=== PATIENT | female | born 1935 | race Caucasian/White ===

== ENCOUNTER 2016-10-14 11:29 | Emergency (ER) | payer BC ==
[2016-10-14 11:34] VITALS: BP 135/79; PULSE 71; TEMP 99; BMI 25.4
[2016-10-14] MEDS ORDERED: CIPROFLOXACIN 500 MG TABLET (RESTRICTED TO ID) PO ONE (12:08)
[2016-10-14] MEDS ORDERED: IBUPROFEN 400 MG TABLET (FP) PO ONE ×2 (12:08→12:19)
[2016-10-14] MEDS ORDERED: DIPHTH,PERTUSS(ACELL),TET 0.5 ML DISP.SYRIN IM ONE (12:08)
--- NOTE | 2016-10-14 12:09 | PDOC ---
History of Present Illness - General Chief Complaint: Injury Stated Complaint: INJURY TO FOOT WITH NAIL Time Seen by Provider: 10/14/16 11:45 History Source: Patient - History of Present Illness Occurred: reports: yesterday Severity: Yes: moderate Lower Extremity Pain Location: right: foot Method of Injury: Yes: other Past History - Past Medical History Allergies/Adverse Reactions: Allergies Allergy/AdvReac Type Severity Reaction Status Date / Time codeine [Codeine] Allergy Verified 10/14/16 12:06 Home Medications: Ambulatory Orders Calcium 500 mg PO DAILY 05/02/12 Cholecalciferol (Vitamin D3) [Vitamin D] 400 unit PO DAILY 05/02/12 Docosahexanoic Acid/Epa [Fish Oil Softgel] 1 each PO DAILY 05/02/12 Levothyroxine [Synthroid -] 112 mcg PO DAILY 05/02/12 Primidone [Mysoline] 50 mg PO TID 05/02/12 Raloxifene HCl [Evista] 60 mg PO DAILY 05/02/12 Spironolactone 25 mg PO BID 05/02/12 Ubidecarenone [Co Q-10] 10 mg PO DAILY 05/02/12 Ciprofloxacin HCl [Cipro] 500 mg PO BID #9 tablet 10/14/16 Anemia: No Asthma: No Cancer: Yes (COLON CANCER, 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) Cardiac Disorders: No CVA: No COPD: No CHF: No Dementia: No Diabetes: No GI Disorders: Yes (COLON CANCER) Disorders: No HTN: No Hypercholesterolemia: No Liver Disease: No Seizures: No Thyroid Disease: No - Surgical History Abdominal Surgery: Yes (colon resection) Appendectomy: Yes Cardiac Surgery: No Cholecystectomy: No Lung Surgery: No Neurologic Surgery: No Orthopedic Surgery: No - Psycho/Social/Smoking Cessation Hx Anxiety: No Suicidal Ideation: No Smoking Status: No Smoking History: Never smoked Have you smoked in the past 12 months: No Number of Cigarettes Smoked Daily: 0 Information on smoking cessation initiated: No Hx Alcohol Use: No Drug/Substance Use Hx: No Substance Use Type: None Hx Substance Use Treatment: No Review of Systems - Review of Systems Constitutional: No: Fever Integumentary: Yes: Other (wound) *Physical Exam - Vital Signs Last Vital Signs Temp Pulse Resp BP Pulse Ox 99.0 F 71 20 135/79 100 10/14/16 11:31 10/14/16 11:31 10/14/16 11:31 10/14/16 11:31 10/14/16 11:31 - Physical Exam General Appearance: Yes: Appropriately Dressed. No: Apparent Distress HEENT: positive: Normal Voice Neck: positive: Supple Respiratory/Chest: negative: Respiratory Distress Extremity: positive: Other (puncture wound to ball of R foot, ttp, no redness, discharge of fb on palpation or grossly) Integumentary: positive: Dry, Warm Neurologic: positive: Fully Oriented, Alert, Normal Mood/Affect ED Treatment Course - RADIOLOGY Radiology Studies Ordered: Category Date Time Status FOOT-RIGHT [RAD] Stat Radiology 10/14/16 12:08 Ordered Medical Decision Making - Medical Decision Making 10/14/16 12:09 81 yo F, hypothyroid, colon ca s/p resection remotely, p/w puncture wound to R foot after stepping on nail outdoor while wearing sneakers yesterday. States nail was "a good size" and was able to remove it intact. Denies fb sensation but hurts to walk. No f/c. See exam Plantar puncture wound Nail removed intact per pt No fb sensation No f/c No obvious infxn to site -local wound care in ED -pain control -tetanus -abx prophylaxis -XR r/o fb 10/14/16 12:10 10/14/16 12:16 10/14/16 13:01 XR neg for fb. Pt discharged in stable condition in care of family for wound check *DC/Admit/Observation/Transfer Diagnosis at time of Disposition: Puncture wound of plantar aspect of foot Qualifiers: Encounter type: initial encounter Laterality: right Qualified Code(s): S91.331A - Puncture wound without foreign body, right foot, initial encounter - Discharge Dispostion Disposition: HOME Condition at time of disposition: Good - Prescriptions Prescriptions: Ciprofloxacin HCl [Cipro] 500 mg PO BID #9 tablet - Referrals Referrals: Von Damon MD [Primary Care Provider] - - Patient Instructions Printed Discharge Instructions: DI for Puncture Wound Additional Instructions: Take antibiotics as directed and return to ED in 2 days for wound check. Return immediately for worsening pain, redness, discharge or fever
[2016-10-14] MEDS ORDERED: BACITRACIN 30 GM TUBE TOPICAL OINTMENT ONE (12:19)
== END 2016-10-14 13:08 | disposition home or self-care (01) ==
LOC: JERFT 11:29
PROC: 3E0234Z Introduction of Serum, Toxoid and Vaccine into Muscle, Percutaneous Approach (ICD-10-PCS; principal; 2016-10-14)
DX: S91.331A Puncture wound without foreign body, right foot, initial encounter (principal); W45.0XXA Nail entering through skin, initial encounter; Y93.01 Activity, walking, marching and hiking; Y92.89 Other specified places as the place of occurrence of the external cause; E03.9 Hypothyroidism, unspecified
CPT/HCPCS: 73630-TC-RT; 90471; 90715; 99282-25

== ENCOUNTER 2022-03-27 11:30 | Inpatient (IN) | payer BC ==
[2022-03-27] MEDS ORDERED: DIPHTH,PERTUSS(ACELL),TET 0.5 ML DISP.SYRIN IM ONE ×2 (12:03→12:22)
[2022-03-27] MEDS ORDERED: ACETAMINOPHEN 1000 MG/100 ML BAG IVPB ONE ×2 (12:05→22:44)
[2022-03-27] MEDS ORDERED: FLUOROURACIL 2% TOPICAL SOLUTION 10 ML BOTTLE TP ONE (12:19)
[2022-03-27] MEDS ORDERED: ACETAMINOPHEN INJECTION 100 ML IVPB ONE ×2 (12:22→23:06)
[2022-03-27] MEDS ORDERED: FLUORESCEIN NA 1 EA STRIP ONE (12:22)
[2022-03-27] MEDS ORDERED: TETRACAINE 0.5% HCL 0.6ML DROPPER.BOTTLE OD ONE (12:28)
[2022-03-27] MEDS ORDERED: TETRACAINE 0.5% OPHTH SOLN 2 ML BOTTLE ONE (12:29)
[2022-03-27 12:31] LABS: VENOUS BASE EXCESS -0.1 mmol/L (-2-2); VENOUS PCO2 46.5 mmHg (38-52); VENOUS PH 7.36 (7.310-7.410)
[2022-03-27 12:49] LABS: INR 1.11 (0.83-1.09); PROTHROMBIN TIME (PATIENT) 12.8 SEC (9.7-13.0)
[2022-03-27 12:52] LABS: ACTIVATED PTT 25.5 SECONDS (25.2-36.5)
[2022-03-27 12:53] LABS: BASO % 0.2 % (0-2.0); HEMATOCRIT 39.5 % (32.4-45.2); HEMOGLOBIN 12.5 GM/dL (10.7-15.3); LYMPH % 21.3 % (8-40); MCH 28.8 pg (25.7-33.7); MCHC 31.7 g/dl (32.0-36.0); MEAN CELL VOLUME 90.9 fl (80-96); MEAN PLT VOLUME 9.8 fl (7.5-11.1); MONO % 7.2 % (3.8-10.2); NEUT % 70.3 % (42.8-82.8); PLATELET COUNT 192 10^3/uL (134-434); RBC 4.35 M/mm3 (3.60-5.2); RDW 13.7 % (11.6-15.6); WHITE BLOOD COUNT 9.9 K/mm3 (4.0-10.0)
[2022-03-27 12:54] LABS: CHLORIDE 106 mmol/L (98-107); SODIUM 142 mmol/L (136-145)
[2022-03-27 12:56] LABS: CALCIUM 9.3 mg/dL (8.5-10.1)
[2022-03-27 12:58] LABS: ALBUMIN 3.7 g/dl (3.4-5.0); ANION GAP 8 MMOL/L (8-16); BLOOD UREA NITROGEN 29.3 mg/dL (7-18); CO2 28 mmol/L (21-32); GLUCOSE,RANDOM 108 mg/dL (74-106); MAGNESIUM 2.2 mg/dL (1.8-2.4)
[2022-03-27 13:01] LABS: CREATININE 0.6 mg/dL (0.55-1.3); PHOSPHOROUS 2.8 mg/dL (2.5-4.9); SGOT/AST 30 U/L (15-37); SGPT/ALT 26 U/L (13-61)
[2022-03-27] MEDS ORDERED: SODIUM CHLORIDE 1,000 ML IV STA (13:02)
[2022-03-27] MEDS ORDERED: KCL 10 MEQ IVPB 10 MEQ/100 ML INFUS.BAG IVPB SCH (13:15)
[2022-03-27 13:48] LABS: ALK PHOS 84 U/L (45-117); BILIRUBIN,TOTAL 0.4 mg/dL (0.2-1); TOT PROT 6.9 g/dl (6.4-8.2)
[2022-03-27 15:04] LABS: EPI CELLS 1 /uL (0-25.1); HYALINE CASTS 0 /uL (0-3.1); URINE APPEARANCE CLEAR; URINE BACTERIA 2 /uL (0-1359); URINE BILIRUBIN NEGATIVE (NEGATIVE); URINE COLOR YELLOW; URINE GLUCOSE (UA) NEGATIVE (NEGATIVE); URINE KETONE NEGATIVE (NEGATIVE); URINE LEUK ESTERASE NEGATIVE (NEGATIVE); URINE NITRITE NEGATIVE (NEGATIVE); URINE PROTEIN NEGATIVE (NEGATIVE); URINE RBC 70 /uL (0-23.9); URINE UROBILINOGEN 0.2 mg/dL (0.2-1.0); URINE WBC 3 /uL (0-25.8)
[2022-03-27] MEDS ORDERED: ASPIRIN 81 MG CHEWABLE TABLETS PO ONE (15:13)
[2022-03-27] MEDS ORDERED: ceFAZolin 2 GRAM PREMIX BAG IVPB ONE (15:56)
[2022-03-27] MEDS ORDERED: CEFAZOLIN SODIUM 2 GM in DEXTROSE 5%-WATER 100 ML IVPB ONE (16:00)
[2022-03-27] MEDS ORDERED: CEFAZOLIN SODIUM 2 GM VIAL ONE (16:19)
[2022-03-27] MEDS ORDERED: ASPIRIN 81 MG CHEWABLE TABLETS ONE (16:27)
[2022-03-27] MEDS ORDERED: HEPARIN NA (PORCINE) 5,000 UNITS/ML 1ML VIAL IVPUSH ONE ×2 (16:40→16:51)
[2022-03-27] MEDS ORDERED: HEPARIN NA (PORCINE) 5,000 UNITS/ML 1ML VIAL IVPUSH PRN ×4 (16:42→16:51)
[2022-03-27] MEDS ORDERED: HEPARIN - 25,000 UNIT in SODIUM CHLORIDE 495 ML IV SCH (16:45)
[2022-03-27] MEDS ORDERED: HEPARIN INFUSION - 25,000 UNITS/500 ML INFUS.BAG IVPB SCH (17:00)
[2022-03-27] MEDS ORDERED: LIDOCAINE HCL 1%, 10 MG/ML (50 mL VIAL) SQ ONE (17:13)
[2022-03-27] MEDS ORDERED: LIDOCAINE HCL 1%, 10 MG/ML (20ML VIAL) ONE (17:15)
[2022-03-27] MEDS ORDERED: HEPARIN NA (PORCINE) 5,000 UNITS/ML 1ML VIAL ONE (17:53)
[2022-03-27] MEDS ORDERED: HEPARIN INFUSION - 25,000 UNITS/500 ML INFUS.BAG IVPB ONE (17:53)
[2022-03-27] MEDS ORDERED: POTASSIUM CHLORIDE TABS 20 MEQ TABLET.ER (FP) PO ONE (18:25)
[2022-03-27] MEDS ORDERED: POTASSIUM CHLORIDE ORAL LIQUID 20 MEQ/15 ML ONE (21:39)
[2022-03-27] MEDS ORDERED: TRIMETHOBENZAMIDE HCL 200MG/2ML INJ IM ONE ×2 (22:09→22:11)
[2022-03-28] MEDS ORDERED: ceFAZolin SODIUM 1 GM VIAL ONE ×3 (04:44→18:36)
[2022-03-28] MEDS: CEFAZOLIN 1 GM in DEXTROSE 5%-WATER - 50 ML IVPB SCH ×3 (04:58→18:47)
[2022-03-28 06:46] LABS: BASO % 0.4 % (0-2.0); EOS % 0.4 % (0-4.5); HEMATOCRIT 31.2 % (32.4-45.2); LYMPH % 15.6 % (8-40); MCH 29.5 pg (25.7-33.7); MEAN CELL VOLUME 92.1 fl (80-96); MEAN PLT VOLUME 9.6 fl (7.5-11.1); NEUT % 75.6 % (42.8-82.8); PLATELET COUNT 175 10^3/uL (134-434); RBC 3.39 M/mm3 (3.60-5.2); RDW 13.9 % (11.6-15.6); WHITE BLOOD COUNT 8.2 K/mm3 (4.0-10.0)
[2022-03-28 07:02] LABS: CALCIUM 8.3 mg/dL (8.5-10.1)
[2022-03-28 07:03] LABS: BLOOD UREA NITROGEN 17.7 mg/dL (7-18)
[2022-03-28 07:06] LABS: CREATININE 0.5 mg/dL (0.55-1.3)
[2022-03-28 07:07] LABS: TOT PROT 5.2 g/dl (6.4-8.2)
[2022-03-28] MEDS ORDERED: POTASSIUM CHLORIDE ORAL LIQUID 20 MEQ/15 ML PO ONE (07:43)
[2022-03-28] MEDS ORDERED: POTASSIUM CHLORIDE ORAL LIQUID 20 MEQ/15 ML ONE (08:18)
[2022-03-28 08:50] LABS: ALBUMIN 2.7 g/dl (3.4-5.0); BILIRUBIN,TOTAL 0.7 mg/dL (0.2-1)
[2022-03-28] MEDS: LEVOTHYROXINE NA 112 MCG TABLET (FP) PO SCH (09:34)
[2022-03-28] MEDS ORDERED: ASPIRIN COATED 81 MG TABLET.EC PO SCH (10:00)
[2022-03-28] MEDS ORDERED: PROTAMINE SULFATE 50 MG/5 ML VIAL IVPUSH ONE (14:43)
[2022-03-28] MEDS ORDERED: levETIRAcetam 500 MG/5 ML INJECTION VIAL IVPB ONE ×3 (14:50→21:09)
[2022-03-28 20:30] LABS: BASO % 0.2 % (0-2.0); EOS % 0.3 % (0-4.5); HEMATOCRIT 30.1 % (32.4-45.2); HEMOGLOBIN 9.8 GM/dL (10.7-15.3); LYMPH % 14.1 % (8-40); MCH 29.9 pg (25.7-33.7); MCHC 32.5 g/dl (32.0-36.0); MEAN CELL VOLUME 91.9 fl (80-96); MEAN PLT VOLUME 9.8 fl (7.5-11.1); MONO % 9.2 % (3.8-10.2); NEUT % 76.2 % (42.8-82.8); PLATELET COUNT 174 10^3/uL (134-434); RBC 3.28 M/mm3 (3.60-5.2); RDW 13.6 % (11.6-15.6); WHITE BLOOD COUNT 9.5 K/mm3 (4.0-10.0)
[2022-03-28] MEDS: levETIRAcetam 500 MG/5 ML INJECTION VIAL IVPB SCH (21:19)
[2022-03-28] MEDS ORDERED: ATORVASTATIN CA 40 MG TABLET (FP) PO SCH (22:00)
[2022-03-29] MEDS ORDERED: ceFAZolin SODIUM 1 GM VIAL ONE ×2 (04:19→09:21)
[2022-03-29] MEDS: CEFAZOLIN 1 GM in DEXTROSE 5%-WATER - 50 ML IVPB SCH ×3 (04:26→17:12)
[2022-03-29] MEDS: LEVOTHYROXINE NA 112 MCG TABLET (FP) PO SCH (07:06)
[2022-03-29 07:55] LABS: HEMATOCRIT 26.7 % (32.4-45.2); HEMOGLOBIN 8.7 GM/dL (10.7-15.3); MCH 29.9 pg (25.7-33.7); MCHC 32.5 g/dl (32.0-36.0); MEAN CELL VOLUME 92.1 fl (80-96); PLATELET COUNT 160 10^3/uL (134-434); RDW 13.6 % (11.6-15.6); WHITE BLOOD COUNT 7.9 K/mm3 (4.0-10.0)
[2022-03-29 08:09] LABS: MAGNESIUM 1.8 mg/dL (1.8-2.4)
[2022-03-29 08:13] LABS: PHOSPHOROUS 2.4 mg/dL (2.5-4.9)
[2022-03-29 08:39] LABS: INR 1.15 (0.83-1.09); PROTHROMBIN TIME (PATIENT) 13.2 SEC (9.7-13.0)
[2022-03-29] MEDS ORDERED: levETIRAcetam 500 MG/5 ML INJECTION VIAL IVPB ONE (09:20)
[2022-03-29] MEDS ORDERED: PANTOPRAZOLE SODIUM 40 MG/100 ML BAG IVPB ONE (09:21)
[2022-03-29 09:54] LABS: CHLORIDE 108 mmol/L (98-107); SODIUM 143 mmol/L (136-145)
[2022-03-29 09:56] LABS: BLOOD UREA NITROGEN 18.2 mg/dL (7-18); CALCIUM 8.3 mg/dL (8.5-10.1)
[2022-03-29 09:57] LABS: ALBUMIN 2.8 g/dl (3.4-5.0); ANION GAP 9 MMOL/L (8-16); CO2 27 mmol/L (21-32); GLUCOSE,RANDOM 97 mg/dL (74-106)
[2022-03-29 09:59] LABS: SGPT/ALT 17 U/L (13-61)
[2022-03-29 10:00] LABS: CREATININE 0.6 mg/dL (0.55-1.3); SGOT/AST 29 U/L (15-37)
[2022-03-29 10:01] LABS: BILIRUBIN,TOTAL 0.6 mg/dL (0.2-1); TOT PROT 5.3 g/dl (6.4-8.2)
[2022-03-29 10:02] LABS: ALK PHOS 58 U/L (45-117)
[2022-03-29] MEDS: PANTOPRAZOLE SODIUM 40 MG VIAL IVPUSH SCH (10:12)
[2022-03-29] MEDS: levETIRAcetam 500 MG/5 ML INJECTION VIAL IVPB SCH ×2 (11:00→22:18)
[2022-03-29] MEDS ORDERED: POTASSIUM CHLORIDE 10 MEQ PREMIX IVPB (POTASSIUM RIDER) IVPB SCH (12:59)
[2022-03-29] MEDS ORDERED: FLU VACC QS2022-23(6MOS UP)/PF 60 MCG/0.5 ML SYRINGE IM ONE (13:07)
[2022-03-29] MEDS ORDERED: SODIUM CHLORIDE 0.9% 500 ML INFUS.BAG IV ONE (13:35)
[2022-03-29] MEDS ORDERED: PNEUMOC 20-VAL CONJ-DIP CRM/PF 0.5 ML SYRINGE IM ONE (14:30)
[2022-03-29] MEDS: KCL 10 MEQ IVPB 10 MEQ/100 ML INFUS.BAG IVPB SCH ×3 (14:35→17:26)
[2022-03-29 17:14] LABS: BASO % 0.3 % (0-2.0); EOS % 1.7 % (0-4.5); HEMATOCRIT 28.3 % (32.4-45.2); HEMOGLOBIN 9.3 GM/dL (10.7-15.3); LYMPH % 17.5 % (8-40); MCH 30.2 pg (25.7-33.7); MCHC 32.8 g/dl (32.0-36.0); MEAN CELL VOLUME 92.1 fl (80-96); MEAN PLT VOLUME 8.9 fl (7.5-11.1); MONO % 11.7 % (3.8-10.2); NEUT % 68.8 % (42.8-82.8); PLATELET COUNT 155 10^3/uL (134-434); RBC 3.07 M/mm3 (3.60-5.2); RDW 13.8 % (11.6-15.6); WHITE BLOOD COUNT 9.6 K/mm3 (4.0-10.0)
[2022-03-29] MEDS: MUPIROCIN 2% TOPICAL OINTMENT FOR DECOLONIZATION NS SCH ×3 (17:25→22:19)
[2022-03-29] MEDS: CHLORHEXIDINE GLUCONATE 4% CLEANSER FOR DECOLONIZATION TP SCH ×2 (20:25→22:18)
[2022-03-29] MEDS: ATORVASTATIN CA 40 MG TABLET (FP) PO SCH (22:19)
[2022-03-30] MEDS: CEFAZOLIN 1 GM in DEXTROSE 5%-WATER - 50 ML IVPB SCH ×3 (02:15→17:42)
[2022-03-30 07:45] LABS: HEMATOCRIT 26.5 % (32.4-45.2); HEMOGLOBIN 8.7 GM/dL (10.7-15.3); MCH 30.4 pg (25.7-33.7); MCHC 32.9 g/dl (32.0-36.0); MEAN CELL VOLUME 92.2 fl (80-96); MEAN PLT VOLUME 9.3 fl (7.5-11.1); PLATELET COUNT 151 10^3/uL (134-434); RBC 2.87 M/mm3 (3.60-5.2); RDW 13.4 % (11.6-15.6); WHITE BLOOD COUNT 8.9 K/mm3 (4.0-10.0)
[2022-03-30 07:51] LABS: INR 1.1 (0.83-1.09); PROTHROMBIN TIME (PATIENT) 12.7 SEC (9.7-13.0)
[2022-03-30 07:52] LABS: ACTIVATED PTT 23.8 SECONDS (25.2-36.5)
[2022-03-30 08:10] LABS: ALBUMIN 2.6 g/dl (3.4-5.0); BLOOD UREA NITROGEN 10.2 mg/dL (7-18); CALCIUM 8.4 mg/dL (8.5-10.1)
[2022-03-30 08:13] LABS: CREATININE 0.5 mg/dL (0.55-1.3); PHOSPHOROUS 2.3 mg/dL (2.5-4.9)
[2022-03-30 08:15] LABS: BILIRUBIN,TOTAL 0.7 mg/dL (0.2-1); TOT PROT 5.2 g/dl (6.4-8.2)
[2022-03-30] MEDS: levETIRAcetam 500 MG/5 ML INJECTION VIAL IVPB SCH ×2 (10:04→22:52)
[2022-03-30] MEDS: PANTOPRAZOLE SODIUM 40 MG VIAL IVPUSH SCH (10:04)
[2022-03-30] MEDS ORDERED: ACETAMINOPHEN INJECTION 100 ML IVPB ONE (14:47)
[2022-03-30] MEDS: ACETAMINOPHEN 1000 MG/100 ML BAG IVPB PRN (15:17)
[2022-03-30] MEDS: MUPIROCIN 2% TOPICAL OINTMENT FOR DECOLONIZATION NS SCH ×2 (15:17→22:53)
[2022-03-30 16:17] LABS: EPI CELLS >36 /uL (0-25.1); HYALINE CASTS 13 /uL (0-3.1); URINE APPEARANCE CLOUDY; URINE BACTERIA 63 /uL (0-1359); URINE BILIRUBIN NEGATIVE (NEGATIVE); URINE COLOR YELLOW; URINE GLUCOSE (UA) NEGATIVE (NEGATIVE); URINE KETONE 2+ (NEGATIVE); URINE LEUK ESTERASE 2+ (NEGATIVE); URINE NITRITE NEGATIVE (NEGATIVE); URINE PROTEIN TRACE (NEGATIVE); URINE RBC 65 /uL (0-23.9); URINE UROBILINOGEN 0.2 mg/dL (0.2-1.0); URINE WBC 373 /uL (0-25.8)
[2022-03-30] MEDS: LEVOTHYROXINE NA 112 MCG TABLET (FP) PO SCH (16:22)
[2022-03-30 20:21] LABS: BASO % 0.2 % (0-2.0); EOS % 1.5 % (0-4.5); HEMOGLOBIN 8.6 GM/dL (10.7-15.3); LYMPH % 22.5 % (8-40); MCH 30.3 pg (25.7-33.7); MCHC 33.3 g/dl (32.0-36.0); MEAN CELL VOLUME 91.1 fl (80-96); MEAN PLT VOLUME 9.3 fl (7.5-11.1); MONO % 10.5 % (3.8-10.2); NEUT % 65.3 % (42.8-82.8); PLATELET COUNT 165 10^3/uL (134-434); RBC 2.85 M/mm3 (3.60-5.2); RDW 13.5 % (11.6-15.6); WHITE BLOOD COUNT 10.8 K/mm3 (4.0-10.0)
[2022-03-30] MEDS: ATORVASTATIN CA 40 MG TABLET (FP) PO SCH (22:52)
[2022-03-30] MEDS: CHLORHEXIDINE GLUCONATE 4% CLEANSER FOR DECOLONIZATION TP SCH (22:53)
[2022-03-31] MEDS: LEVOTHYROXINE NA 112 MCG TABLET (FP) PO SCH (06:37)
[2022-03-31] MEDS ORDERED: levETIRAcetam 500 MG/5 ML INJECTION VIAL IVPB SCH (10:00)
[2022-03-31] MEDS ORDERED: PANTOPRAZOLE SODIUM 40 MG VIAL IVPUSH SCH (10:00)
[2022-03-31] MEDS: ACETAMINOPHEN 1000 MG/100 ML BAG IVPB PRN (10:13)
[2022-03-31 11:51] LABS: INR 1.15 (0.83-1.09); PROTHROMBIN TIME (PATIENT) 13.2 SEC (9.7-13.0)
[2022-03-31 11:55] LABS: HEMATOCRIT 27.5 % (32.4-45.2); HEMOGLOBIN 9.1 GM/dL (10.7-15.3); MCH 30.2 pg (25.7-33.7); MEAN CELL VOLUME 91.6 fl (80-96); MEAN PLT VOLUME 9.6 fl (7.5-11.1); PLATELET COUNT 172 10^3/uL (134-434); RBC 3.01 M/mm3 (3.60-5.2); RDW 13.5 % (11.6-15.6); WHITE BLOOD COUNT 10.6 K/mm3 (4.0-10.0)
[2022-03-31] MEDS ORDERED: POTASSIUM CHLORIDE TABS 20 MEQ TABLET.ER (FP) PO ONE (12:18)
[2022-03-31 12:28] LABS: CALCIUM 8.6 mg/dL (8.5-10.1)
[2022-03-31 12:29] LABS: ALBUMIN 2.7 g/dl (3.4-5.0); BLOOD UREA NITROGEN 13.2 mg/dL (7-18)
[2022-03-31 12:32] LABS: CREATININE 0.5 mg/dL (0.55-1.3)
[2022-03-31 12:34] LABS: BILIRUBIN,TOTAL 0.8 mg/dL (0.2-1); TOT PROT 5.4 g/dl (6.4-8.2)
[2022-03-31] MEDS: ATORVASTATIN CA 40 MG TABLET (FP) PO SCH (22:30)
[2022-03-31] MEDS: levETIRAcetam 500 MG TABLET (FP) PO SCH (22:30)
[2022-04-01] MEDS: LEVOTHYROXINE NA 112 MCG TABLET (FP) PO SCH (06:37)
[2022-04-01] MEDS: PANTOPRAZOLE 40 MG TABLET PO SCH (10:41)
[2022-04-01] MEDS: levETIRAcetam 500 MG TABLET (FP) PO SCH ×2 (10:41→22:11)
[2022-04-01 11:43] LABS: BASO % 0.2 % (0-2.0); EOS % 2.4 % (0-4.5); HEMATOCRIT 27.7 % (32.4-45.2); HEMOGLOBIN 9.2 GM/dL (10.7-15.3); LYMPH % 17.4 % (8-40); MCH 30.1 pg (25.7-33.7); MEAN CELL VOLUME 91.3 fl (80-96); MEAN PLT VOLUME 9.4 fl (7.5-11.1); MONO % 9.7 % (3.8-10.2); NEUT % 70.3 % (42.8-82.8); PLATELET COUNT 210 10^3/uL (134-434); RBC 3.04 M/mm3 (3.60-5.2); RDW 13.2 % (11.6-15.6); WHITE BLOOD COUNT 9.3 K/mm3 (4.0-10.0)
[2022-04-01 12:10] LABS: ALBUMIN 2.5 g/dl (3.4-5.0); BLOOD UREA NITROGEN 12.4 mg/dL (7-18); CALCIUM 8.3 mg/dL (8.5-10.1); MAGNESIUM 2.1 mg/dL (1.8-2.4)
[2022-04-01] MEDS ORDERED: POTASSIUM CHLORIDE TABS 20 MEQ TABLET.ER (FP) PO ONE (12:11)
[2022-04-01 12:14] LABS: CREATININE 0.4 mg/dL (0.55-1.3); TOT PROT 5.3 g/dl (6.4-8.2)
[2022-04-01] MEDS: ATORVASTATIN CA 40 MG TABLET (FP) PO SCH (22:11)
[2022-04-02] MEDS: LEVOTHYROXINE NA 112 MCG TABLET (FP) PO SCH (06:39)
[2022-04-02] MEDS: PANTOPRAZOLE 40 MG TABLET PO SCH (09:12)
[2022-04-02] MEDS: levETIRAcetam 500 MG TABLET (FP) PO SCH ×2 (09:12→21:27)
[2022-04-02 10:38] LABS: BASO % 0.3 % (0-2.0); EOS % 1.9 % (0-4.5); HEMATOCRIT 27.3 % (32.4-45.2); LYMPH % 23.9 % (8-40); MEAN CELL VOLUME 90.9 fl (80-96); MEAN PLT VOLUME 9.1 fl (7.5-11.1); MONO % 10.4 % (3.8-10.2); NEUT % 63.5 % (42.8-82.8); PLATELET COUNT 239 10^3/uL (134-434); RBC 3.01 M/mm3 (3.60-5.2); RDW 13.6 % (11.6-15.6); WHITE BLOOD COUNT 8.4 K/mm3 (4.0-10.0)
[2022-04-02 11:00] LABS: ALBUMIN 2.6 g/dl (3.4-5.0); CALCIUM 8.5 mg/dL (8.5-10.1)
[2022-04-02 11:01] LABS: BLOOD UREA NITROGEN 15.2 mg/dL (7-18); MAGNESIUM 2.1 mg/dL (1.8-2.4)
[2022-04-02 11:03] LABS: CREATININE 0.4 mg/dL (0.55-1.3)
[2022-04-02 11:06] LABS: BILIRUBIN,TOTAL 1.2 mg/dL (0.2-1); TOT PROT 5.5 g/dl (6.4-8.2)
[2022-04-02] MEDS: ATORVASTATIN CA 40 MG TABLET (FP) PO SCH (21:27)
[2022-04-03] MEDS: LEVOTHYROXINE NA 112 MCG TABLET (FP) PO SCH (06:10)
[2022-04-03 09:14] LABS: BASO % 0.5 % (0-2.0); EOS % 2.1 % (0-4.5); HEMATOCRIT 28.1 % (32.4-45.2); HEMOGLOBIN 9.3 GM/dL (10.7-15.3); LYMPH % 17.7 % (8-40); MCH 30.1 pg (25.7-33.7); MCHC 32.9 g/dl (32.0-36.0); MEAN CELL VOLUME 91.4 fl (80-96); MEAN PLT VOLUME 8.6 fl (7.5-11.1); MONO % 10.7 % (3.8-10.2); PLATELET COUNT 248 10^3/uL (134-434); RBC 3.08 M/mm3 (3.60-5.2); RDW 13.9 % (11.6-15.6); WHITE BLOOD COUNT 7.6 K/mm3 (4.0-10.0)
[2022-04-03] MEDS: levETIRAcetam 500 MG TABLET (FP) PO SCH ×2 (09:31→22:50)
[2022-04-03] MEDS: PANTOPRAZOLE 40 MG TABLET PO SCH (09:31)
[2022-04-03 09:32] LABS: BLOOD UREA NITROGEN 18.6 mg/dL (7-18); CALCIUM 8.7 mg/dL (8.5-10.1)
[2022-04-03 09:33] LABS: ALBUMIN 2.7 g/dl (3.4-5.0)
[2022-04-03 09:35] LABS: CREATININE 0.5 mg/dL (0.55-1.3)
[2022-04-03 09:37] LABS: BILIRUBIN,TOTAL 1.4 mg/dL (0.2-1); TOT PROT 5.8 g/dl (6.4-8.2)
[2022-04-03 12:22] VITALS: BMI 24.0
[2022-04-03] MEDS: ATORVASTATIN CA 40 MG TABLET (FP) PO SCH (22:50)
[2022-04-04] MEDS: LEVOTHYROXINE NA 112 MCG TABLET (FP) PO SCH ×2 (05:13→06:54)
[2022-04-04] MEDS: levETIRAcetam 500 MG TABLET (FP) PO SCH (12:43)
[2022-04-04] MEDS: PANTOPRAZOLE 40 MG TABLET PO SCH (12:44)
[2022-04-04] MEDS: ATORVASTATIN CA 40 MG TABLET (FP) PO SCH (22:26)
[2022-04-05] MEDS: LEVOTHYROXINE NA 112 MCG TABLET (FP) PO SCH (06:31)
[2022-04-05] MEDS: PANTOPRAZOLE 40 MG TABLET PO SCH (11:39)
[2022-04-05] MEDS: ATORVASTATIN CA 40 MG TABLET (FP) PO SCH (21:15)
[2022-04-06] MEDS: LEVOTHYROXINE NA 112 MCG TABLET (FP) PO SCH (06:17)
[2022-04-06] MEDS: PANTOPRAZOLE 40 MG TABLET PO SCH (12:51)
[2022-04-06] MEDS ORDERED: ACETAMINOPHEN 325 MG TABLET (FP) PO PRN (14:40)
[2022-04-06] MEDS: ATORVASTATIN CA 40 MG TABLET (FP) PO SCH (21:53)
[2022-04-07] MEDS: LEVOTHYROXINE NA 112 MCG TABLET (FP) PO SCH (06:04)
[2022-04-07] MEDS: PANTOPRAZOLE 40 MG TABLET PO SCH ×2 (10:19→16:16)
[2022-04-07 13:29] LABS: BASO % 0.3 % (0-2.0); EOS % 0.9 % (0-4.5); HEMATOCRIT 32.1 % (32.4-45.2); HEMOGLOBIN 10.3 GM/dL (10.7-15.3); LYMPH % 14.9 % (8-40); MCH 29.3 pg (25.7-33.7); MEAN CELL VOLUME 91.3 fl (80-96); MEAN PLT VOLUME 8.2 fl (7.5-11.1); MONO % 8.4 % (3.8-10.2); NEUT % 75.5 % (42.8-82.8); PLATELET COUNT 401 10^3/uL (134-434); RBC 3.51 M/mm3 (3.60-5.2); RDW 13.9 % (11.6-15.6); WHITE BLOOD COUNT 10.2 K/mm3 (4.0-10.0)
[2022-04-07 14:06] LABS: ALBUMIN 3.2 g/dl (3.4-5.0); CALCIUM 9.4 mg/dL (8.5-10.1)
[2022-04-07 14:10] LABS: CREATININE 0.6 mg/dL (0.55-1.3); MAGNESIUM 2.1 mg/dL (1.8-2.4)
[2022-04-07 14:11] LABS: TOT PROT 6.7 g/dl (6.4-8.2)
[2022-04-07 14:12] LABS: BILIRUBIN,TOTAL 0.9 mg/dL (0.2-1)
[2022-04-07 17:02] LABS: EPI CELLS 4 /uL (0-25.1); HYALINE CASTS 0 /uL (0-3.1); PH,URINE 6.5 (5.0-8.0); URINE APPEARANCE CLEAR; URINE BACTERIA 16 /uL (0-1359); URINE BILIRUBIN NEGATIVE (NEGATIVE); URINE COLOR YELLOW; URINE GLUCOSE (UA) NEGATIVE (NEGATIVE); URINE KETONE NEGATIVE (NEGATIVE); URINE LEUK ESTERASE 1+ (NEGATIVE); URINE NITRITE NEGATIVE (NEGATIVE); URINE PROTEIN NEGATIVE (NEGATIVE); URINE RBC 4 /uL (0-23.9); URINE WBC 18 /uL (0-25.8)
[2022-04-07] MEDS ORDERED: CEFTRIAXONE 1 GM in DEXTROSE 5%-WATER - 50 ML IVPB ONE (17:08)
[2022-04-07] MEDS: ATORVASTATIN CA 40 MG TABLET (FP) PO SCH (22:06)
[2022-04-08] MEDS: CEFUROXIME AXETIL 500 MG TABLET PO SCH ×2 (06:38→09:06)
[2022-04-08 09:01] VITALS: RESP 18
[2022-04-08] MEDS: PANTOPRAZOLE 40 MG TABLET PO SCH (09:06)
[2022-04-08] MEDS: LEVOTHYROXINE NA 112 MCG TABLET (FP) PO SCH (10:35)
[2022-04-08 12:33] VITALS: BP 117/59; PULSE 86; TEMP 98.2
== END 2022-04-08 11:44 | DRG 85 ==
LOC: JER 11:30 → JERBED 16:15 → JICU 03-29 10:31 → J5S 03-30 15:33
PROVIDERS: ADMIT Internal Medicine; ATTEND Nurse Practitioner Family
PROC: 0HBRXZZ Excision of Toe Nail, External Approach (ICD-10-PCS; principal; 2022-03-30)
DX: S06.6X0A Traumatic subarachnoid hemorrhage without loss of consciousness, initial encounter (principal); I21.4 Non-ST elevation (NSTEMI) myocardial infarction; R47.01 Aphasia; S02.401A Maxillary fracture, unspecified side, initial encounter for closed fracture; F03.90 Unspecified dementia, unspecified severity, without behavioral disturbance, psychotic disturbance, mood disturbance, and anxiety; E03.9 Hypothyroidism, unspecified; S01.112A Laceration without foreign body of left eyelid and periocular area, initial encounter; R55 Syncope and collapse; I10 Essential (primary) hypertension; W19.XXXA Unspecified fall, initial encounter; Y93.9 Activity, unspecified; Y92.89 Other specified places as the place of occurrence of the external cause; Y99.9 Unspecified external cause status; B35.1 Tinea unguium; R31.29 Other microscopic hematuria
CPT/HCPCS: 0241U-QW; 36415; 70450-TC; 70486-TC; 70496-TC; 70498-TC; 71045-TC-FY; 71260-TC; 72125-TC; 72128-TC; 72131-TC; 72170-TC-FY; 73562-TC-LT-FY; 73630-TC-LT; 73630-TC-RT-FY; 74177-TC; 80053; 80061; 80307; 81003; 82272; 82550; 82553; 82803; 82962; 83605; 83735; 84100; 84439; 84443; 84484; 85025; 85027; 85384; 85610; 85730; 86850; 86900; 86901; 87040; 87086; 90677; 90715; 93005; 93010; 93306-TC; 93880-TC; 97116-GP; 97162-GP; 99285-25; C9803-CS; G0008; J1644; Q2036; U0003; U0005

== ENCOUNTER 2022-11-27 22:30 | Inpatient (IN) | payer OTHER, MEDICARE ==
[2022-11-27 22:37] VITALS: BMI 27.3
[2022-11-27] MEDS ORDERED: ACETAMINOPHEN 325 MG TABLET (FP) PO ONE (23:28)
[2022-11-28] MEDS ORDERED: ACETAMINOPHEN 325 MG TABLET (FP) ONE (00:17)
[2022-11-28] MEDS ORDERED: ACETAMINOPHEN 650 MG/20.3 ML ORAL SOLUTION (CUPS) ONE (00:21)
[2022-11-28] MEDS ORDERED: ACETAMINOPHEN 160 MG/5 ML 473ML BULK BOTTLE ONE (00:21)
[2022-11-28] MEDS ORDERED: ACETAMINOPHEN 650 MG/20.3 ML ORAL SOLUTION (CUPS) PO ONE (00:22)
[2022-11-28 02:28] LABS: HEMOGLOBIN 11.8 GM/dL (10.7-15.3); RBC 4.23 M/mm3 (3.60-5.2); WHITE BLOOD COUNT 14.5 K/mm3 (4.0-10.0)
[2022-11-28 02:29] LABS: BASO % 0.2 % (0-2.0); EOS % 0.1 % (0-4.5); HEMATOCRIT 37.4 % (32.4-45.2); LYMPH % 14.1 % (8-40); MCH 27.9 pg (25.7-33.7); MCHC 31.6 g/dl (32.0-36.0); MEAN CELL VOLUME 88.4 fl (80-96); MEAN PLT VOLUME 9.2 fl (7.5-11.1); MONO % 5.6 % (3.8-10.2); PLATELET COUNT 211 10^3/uL (134-434); RDW 15.8 % (11.6-15.6)
[2022-11-28 02:47] LABS: POTASSIUM 3.9 mmol/L (3.5-5.1)
[2022-11-28 02:50] LABS: ALBUMIN 3.2 g/dl (3.4-5.0); BLOOD UREA NITROGEN 32.1 mg/dL (7-18); CALCIUM 9.4 mg/dL (8.5-10.1)
[2022-11-28 02:55] LABS: BILIRUBIN,TOTAL 0.4 mg/dL (0.2-1); TOT PROT 6.3 g/dl (6.4-8.2)
[2022-11-28] MEDS ORDERED: CEFTRIAXONE 1 GM in DEXTROSE 5%-WATER - 50 ML IVPB ONE (06:00)
[2022-11-28] MEDS ORDERED: AZITHROMYCIN IVPB 500 MG/250 ML BAG IVPB ONE ×2 (06:00→10:45)
[2022-11-28] MEDS ORDERED: CEFTRIAXONE 1 GM/50 ML BAG ONE (07:00)
[2022-11-28] MEDS: PANTOPRAZOLE 40 MG TABLET PO SCH (10:52)
[2022-11-28] MEDS: LEVOTHYROXINE NA 112 MCG TABLET (FP) PO SCH (10:52)
[2022-11-28] MEDS: ENOXAPARIN NA (PORCINE) 40 MG/0.4 ML DISP.SYRIN SQ SCH (10:53)
[2022-11-28] MEDS ORDERED: DEXTROSE 5%-LACTATED RINGERS 1,000 ML IV SCH (11:15)
[2022-11-28] MEDS: ACETAMINOPHEN 325 MG TABLET (FP) PO PRN (13:51)
[2022-11-28] MEDS: ATORVASTATIN CA 40 MG TABLET (FP) PO SCH (21:25)
[2022-11-28] MEDS: DONEPEZIL HCL 10 MG TABLET (FP) PO SCH (21:25)
[2022-11-29] MEDS: LEVOTHYROXINE NA 112 MCG TABLET (FP) PO SCH (06:47)
[2022-11-29] MEDS: PANTOPRAZOLE 40 MG TABLET PO SCH (10:42)
[2022-11-29] MEDS: CEFTRIAXONE 1 GM in DEXTROSE 5%-WATER - 50 ML IVPB SCH (10:42)
[2022-11-29] MEDS: ENOXAPARIN NA (PORCINE) 40 MG/0.4 ML DISP.SYRIN SQ SCH (10:42)
[2022-11-29] MEDS: AZITHROMYCIN IVPB 250 MG in DEXTROSE 5%-WATER - 250 ML IVPB SCH (10:43)
[2022-11-29 12:04] LABS: BASO % 0.1 % (0-2.0); EOS % 0.1 % (0-4.5); HEMATOCRIT 34.7 % (32.4-45.2); HEMOGLOBIN 10.8 GM/dL (10.7-15.3); MCH 27.5 pg (25.7-33.7); MEAN CELL VOLUME 88.6 fl (80-96); MEAN PLT VOLUME 10.4 fl (7.5-11.1); MONO % 10.4 % (3.8-10.2); NEUT % 69.4 % (42.8-82.8); PLATELET COUNT 177 10^3/uL (134-434); RBC 3.92 M/mm3 (3.60-5.2); RDW 16.4 % (11.6-15.6); WHITE BLOOD COUNT 12.3 K/mm3 (4.0-10.0)
[2022-11-29 12:25] LABS: POTASSIUM 3.6 mmol/L (3.5-5.1)
[2022-11-29 12:28] LABS: BLOOD UREA NITROGEN 13.5 mg/dL (7-18)
[2022-11-29] MEDS ORDERED: LACTATED RINGERS SOLUTION 1,000 ML/1,000 ML INFUS.BAG IV SCH (12:30)
[2022-11-29 12:31] LABS: CREATININE 0.6 mg/dL (0.55-1.3)
[2022-11-29] MEDS ORDERED: DOCUSATE SODIUM 100 MG CAPSULE (FP) PO PRN (12:31)
[2022-11-29] MEDS: ACETAMINOPHEN 325 MG TABLET (FP) PO PRN (18:55)
[2022-11-29 19:21] LABS: EPI CELLS 24 /uL (0-25.1); HYALINE CASTS 0 /uL (0-3.1); URINE APPEARANCE CLEAR; URINE BACTERIA 12 /uL (0-1359); URINE BILIRUBIN NEGATIVE (NEGATIVE); URINE COLOR YELLOW; URINE GLUCOSE (UA) NEGATIVE (NEGATIVE); URINE KETONE NEGATIVE (NEGATIVE); URINE LEUK ESTERASE TRACE (NEGATIVE); URINE NITRITE NEGATIVE (NEGATIVE); URINE PROTEIN NEGATIVE (NEGATIVE); URINE RBC 15 /uL (0-23.9); URINE UROBILINOGEN 0.2 mg/dL (0.2-1.0); URINE WBC 20 /uL (0-25.8)
[2022-11-29] MEDS: SENNOSIDES 8.6MG TABLET (FP) PO SCH (21:07)
[2022-11-29] MEDS: ATORVASTATIN CA 40 MG TABLET (FP) PO SCH (21:07)
[2022-11-29] MEDS: DONEPEZIL HCL 10 MG TABLET (FP) PO SCH (21:07)
[2022-11-30] MEDS: LEVOTHYROXINE NA 112 MCG TABLET (FP) PO SCH (06:20)
[2022-11-30] MEDS: PANTOPRAZOLE 40 MG TABLET PO SCH (10:43)
[2022-11-30] MEDS: CEFTRIAXONE 1 GM in DEXTROSE 5%-WATER - 50 ML IVPB SCH (10:43)
[2022-11-30] MEDS: AZITHROMYCIN IVPB 250 MG in DEXTROSE 5%-WATER - 250 ML IVPB SCH (10:44)
[2022-11-30] MEDS: ENOXAPARIN NA (PORCINE) 40 MG/0.4 ML DISP.SYRIN SQ SCH (10:44)
[2022-11-30] MEDS: ACETAMINOPHEN 325 MG TABLET (FP) PO PRN ×2 (11:13→22:17)
[2022-11-30] MEDS: SENNOSIDES 8.6MG TABLET (FP) PO SCH (22:17)
[2022-11-30] MEDS: DONEPEZIL HCL 10 MG TABLET (FP) PO SCH (22:17)
[2022-11-30] MEDS: ATORVASTATIN CA 40 MG TABLET (FP) PO SCH (22:17)
[2022-12-01] MEDS: LEVOTHYROXINE NA 112 MCG TABLET (FP) PO SCH (06:16)
[2022-12-01 09:31] LABS: BASO % 0.2 % (0-2.0); EOS % 0.9 % (0-4.5); HEMATOCRIT 33.4 % (32.4-45.2); HEMOGLOBIN 10.7 GM/dL (10.7-15.3); LYMPH % 22.4 % (8-40); MCH 28.6 pg (25.7-33.7); MCHC 32.1 g/dl (32.0-36.0); MONO % 10.4 % (3.8-10.2); NEUT % 66.1 % (42.8-82.8); PLATELET COUNT 201 10^3/uL (134-434); RBC 3.75 M/mm3 (3.60-5.2); WHITE BLOOD COUNT 7.9 K/mm3 (4.0-10.0)
[2022-12-01 09:51] LABS: POTASSIUM 3.3 mmol/L (3.5-5.1)
[2022-12-01 09:55] LABS: BLOOD UREA NITROGEN 18.4 mg/dL (7-18); CALCIUM 8.7 mg/dL (8.5-10.1); MAGNESIUM 2.1 mg/dL (1.8-2.4)
[2022-12-01 09:58] LABS: CREATININE 0.4 mg/dL (0.55-1.3); PHOSPHOROUS 2.9 mg/dL (2.5-4.9)
[2022-12-01] MEDS: PANTOPRAZOLE 40 MG TABLET PO SCH (11:40)
[2022-12-01] MEDS: ENOXAPARIN NA (PORCINE) 40 MG/0.4 ML DISP.SYRIN SQ SCH (11:40)
[2022-12-01] MEDS: CEFTRIAXONE 1 GM in DEXTROSE 5%-WATER - 50 ML IVPB SCH (11:41)
[2022-12-01] MEDS: AZITHROMYCIN IVPB 250 MG in DEXTROSE 5%-WATER - 250 ML IVPB SCH (11:41)
[2022-12-01] MEDS: DONEPEZIL HCL 10 MG TABLET (FP) PO SCH (21:58)
[2022-12-01] MEDS: ACETAMINOPHEN 325 MG TABLET (FP) PO PRN (21:59)
[2022-12-01] MEDS: ATORVASTATIN CA 40 MG TABLET (FP) PO SCH (21:59)
[2022-12-01] MEDS: SENNOSIDES 8.6MG TABLET (FP) PO SCH (21:59)
[2022-12-02] MEDS: LEVOTHYROXINE NA 112 MCG TABLET (FP) PO SCH (06:01)
[2022-12-02 09:15] VITALS: RESP 18
[2022-12-02] MEDS: ENOXAPARIN NA (PORCINE) 40 MG/0.4 ML DISP.SYRIN SQ SCH (10:03)
[2022-12-02] MEDS: PANTOPRAZOLE 40 MG TABLET PO SCH (10:03)
[2022-12-02] MEDS: CEFTRIAXONE 1 GM in DEXTROSE 5%-WATER - 50 ML IVPB SCH (10:03)
[2022-12-02 13:46] VITALS: BP 142/70; PULSE 74; TEMP 98.7
[2022-12-02] MEDS ORDERED: POTASSIUM CHLORIDE ORAL LIQUID 20 MEQ/15 ML PO ONE (14:56)
== END 2022-12-02 17:56 | DRG 562 ==
LOC: JER 22:30 → JERBED 11-28 03:58 → J7W 11-28 08:10
PROVIDERS: ADMIT Internal Medicine; ATTEND Nurse Practitioner Family
DX: S42.232A 3-part fracture of surgical neck of left humerus, initial encounter for closed fracture (principal); J18.9 Pneumonia, unspecified organism; S01.112A Laceration without foreign body of left eyelid and periocular area, initial encounter; W01.0XXA Fall on same level from slipping, tripping and stumbling without subsequent striking against object, initial encounter; Y93.89 Activity, other specified; Y92.009 Unspecified place in unspecified non-institutional (private) residence as the place of occurrence of the external cause; Y99.8 Other external cause status; F03.90 Unspecified dementia, unspecified severity, without behavioral disturbance, psychotic disturbance, mood disturbance, and anxiety; I10 Essential (primary) hypertension; E78.5 Hyperlipidemia, unspecified; E03.9 Hypothyroidism, unspecified; I25.2 Old myocardial infarction; D72.829 Elevated white blood cell count, unspecified
CPT/HCPCS: 36415; 70450-TC; 70486-TC; 71046-TC-FY; 72125-TC; 72170-TC-FY; 72192-TC; 73030-TC-LT-FY; 73060-TC-LT-FY; 80048; 80053; 80061; 81003; 82550; 82553; 83735; 84100; 84443; 85025; 87086; 93005; 93010; 97116-GP; 97161-GP; 99285-25

== ENCOUNTER 2024-06-12 10:18 | Inpatient (IN) | payer MEDICARE, OTHER ==
[2024-06-12 11:25] LABS: BASO % 0.6 % (0-2.0); EOS % 0.5 % (0-4.5); HEMATOCRIT 43.6 % (32.4-45.2); HEMOGLOBIN 13.7 GM/dL (10.7-15.3); LYMPH % 11.3 % (8-40); MCH 28.6 pg (25.7-33.7); MCHC 31.4 g/dl (32.0-36.0); MEAN CELL VOLUME 90.9 fl (80-96); MEAN PLT VOLUME 9.4 fl (7.5-11.1); MONO % 7.8 % (3.8-10.2); NEUT % 79.8 % (42.8-82.8); PLATELET COUNT 231 10^3/uL (134-434); RDW 14.6 % (11.6-15.6)
[2024-06-12 11:40] LABS: INR 1.09 (0.83-1.09); PROTHROMBIN TIME (PATIENT) 12.3 SEC (9.7-13.0)
[2024-06-12 11:42] LABS: ACTIVATED PTT 29.5 SECONDS (25.2-36.5)
[2024-06-12 12:41] LABS: EPI CELLS 10 /uL (0-25.1); HYALINE CASTS 1 /uL (0-3.1); PH,URINE 7.5 (5.0-8.0); URINE APPEARANCE CLOUDY; URINE BACTERIA 1518 /uL (0-1359); URINE BILIRUBIN NEGATIVE (NEGATIVE); URINE COLOR YELLOW; URINE GLUCOSE (UA) NEGATIVE (NEGATIVE); URINE KETONE NEGATIVE (NEGATIVE); URINE LEUK ESTERASE 2+ (NEGATIVE); URINE NITRITE NEGATIVE (NEGATIVE); URINE PROTEIN NEGATIVE (NEGATIVE); URINE UROBILINOGEN 0.2 mg/dL (0.2-1.0); URINE WBC 98 /uL (0-25.8)
[2024-06-12] MEDS ORDERED: cefTRIAXone SODIUM 1 GM VIAL ONE (13:00)
[2024-06-12 13:02] LABS: URINE RBC 425.2 /uL (0-23.9)
[2024-06-12] MEDS: CEFTRIAXONE 1 GM in DEXTROSE 5%-WATER - 100 ML IVPB ONE (13:10)
[2024-06-12 13:29] LABS: POTASSIUM 4.2 mmol/L (3.5-5.1)
[2024-06-12 13:32] LABS: ALBUMIN 3.4 g/dl (3.4-5.0); BLOOD UREA NITROGEN 22.5 mg/dL (7-18); CALCIUM 9.1 mg/dL (8.5-10.1)
[2024-06-12 13:33] LABS: MAGNESIUM 2.1 mg/dL (1.8-2.4)
[2024-06-12 13:35] LABS: CREATININE 0.8 mg/dL (0.55-1.3)
[2024-06-12 13:37] LABS: BILIRUBIN,TOTAL 0.9 mg/dL (0.2-1); TOT PROT 6.8 g/dl (6.4-8.2)
[2024-06-12] MEDS ORDERED: ASPIRIN COATED 81 MG TABLET.EC ONE (13:53)
[2024-06-12] MEDS: ASPIRIN COATED 81 MG TABLET.EC PO SCH (13:57)
[2024-06-12] MEDS: MEMANTINE HCL 10 MG TABLET (FP) PO SCH (22:37)
[2024-06-13] MEDS: LEVOTHYROXINE NA 112 MCG TABLET (FP) PO SCH (07:19)
[2024-06-13 08:14] LABS: HEMATOCRIT 39.6 % (32.4-45.2); HEMOGLOBIN 12.7 GM/dL (10.7-15.3); MCH 29.1 pg (25.7-33.7); MCHC 32.1 g/dl (32.0-36.0); MEAN CELL VOLUME 90.5 fl (80-96); MEAN PLT VOLUME 9.8 fl (7.5-11.1); PLATELET COUNT 210 10^3/uL (134-434); RBC 4.37 M/mm3 (3.60-5.2); RDW 14.8 % (11.6-15.6); WHITE BLOOD COUNT 9.8 K/mm3 (4.0-10.0)
[2024-06-13 08:40] LABS: POTASSIUM 3.7 mmol/L (3.5-5.1)
[2024-06-13 08:42] LABS: CALCIUM 8.8 mg/dL (8.5-10.1)
[2024-06-13 08:43] LABS: ALBUMIN 3.1 g/dl (3.4-5.0); BLOOD UREA NITROGEN 24.4 mg/dL (7-18); MAGNESIUM 2.1 mg/dL (1.8-2.4)
[2024-06-13 08:46] LABS: CREATININE 0.8 mg/dL (0.55-1.3); PHOSPHOROUS 2.9 mg/dL (2.5-4.9)
[2024-06-13 08:47] LABS: BILIRUBIN,TOTAL 0.9 mg/dL (0.2-1); TOT PROT 6.2 g/dl (6.4-8.2)
[2024-06-13] MEDS: DONEPEZIL HCL 10 MG TABLET (FP) PO SCH (10:19)
[2024-06-13] MEDS: CEFTRIAXONE 1 G/50 ML PREMIX 50 ML IVPB SCH (10:19)
[2024-06-13] MEDS: ENOXAPARIN NA (PORCINE) 40 MG/0.4 ML DISP.SYRIN SQ SCH (10:19)
[2024-06-13 15:41] LABS: ARTERIAL BLD GAS O2 SATURATION 95.9 % (95-98); ARTERIAL BLOOD GAS BASE EXCESS -0.5 mmol/L (-2-2); ARTERIAL BLOOD GAS PO2 75.9 mmHg (80-100); ARTERIAL BLOOD GAS pH 7.449 (7.350-7.450)
[2024-06-13 15:47] LABS: ALLENS TEST POSITIVE
[2024-06-13] MEDS: ATORVASTATIN CA 40 MG TABLET (FP) PO SCH (21:05)
[2024-06-14 08:02] LABS: CALCIUM 8.9 mg/dL (8.5-10.1)
[2024-06-14 08:03] LABS: ALBUMIN 2.9 g/dl (3.4-5.0); BLOOD UREA NITROGEN 23.9 mg/dL (7-18); MAGNESIUM 2.2 mg/dL (1.8-2.4)
[2024-06-14 08:04] LABS: BILIRUBIN,TOTAL 0.9 mg/dL (0.2-1); TOT PROT 6.1 g/dl (6.4-8.2)
[2024-06-14 08:05] LABS: CREATININE 0.8 mg/dL (0.55-1.3)
[2024-06-14 08:06] LABS: PHOSPHOROUS 3.2 mg/dL (2.5-4.9)
[2024-06-15 07:40] VITALS: BMI 28.7
[2024-06-15 08:08] LABS: HEMATOCRIT 40.7 % (32.4-45.2); MEAN CELL VOLUME 90.5 fl (80-96); MEAN PLT VOLUME 9.7 fl (7.5-11.1); PLATELET COUNT 207 10^3/uL (134-434); RBC 4.49 M/mm3 (3.60-5.2); RDW 14.6 % (11.6-15.6); WHITE BLOOD COUNT 9.2 K/mm3 (4.0-10.0)
[2024-06-15 08:25] LABS: POTASSIUM 3.8 mmol/L (3.5-5.1)
[2024-06-15 08:32] LABS: ALBUMIN 2.9 g/dl (3.4-5.0); BLOOD UREA NITROGEN 29.4 mg/dL (7-18)
[2024-06-15 08:35] LABS: CREATININE 0.7 mg/dL (0.55-1.3)
[2024-06-15 08:37] LABS: BILIRUBIN,TOTAL 0.7 mg/dL (0.2-1); TOT PROT 6.4 g/dl (6.4-8.2)
[2024-06-15 15:44] VITALS: BP 121/54; PULSE 62; RESP 18; TEMP 98.6
== END 2024-06-15 15:56 | disposition home or self-care (01) | DRG 690 ==
LOC: JER 10:18 → JERBED 13:10 → J4W 21:37
PROVIDERS: ADMIT Internal Medicine; ATTEND Internal Medicine
DX: N39.0 Urinary tract infection, site not specified (principal); G45.9 Transient cerebral ischemic attack, unspecified; I10 Essential (primary) hypertension; F03.90 Unspecified dementia, unspecified severity, without behavioral disturbance, psychotic disturbance, mood disturbance, and anxiety; R47.81 Slurred speech; E03.9 Hypothyroidism, unspecified; R41.82 Altered mental status, unspecified; I67.1 Cerebral aneurysm, nonruptured
CPT/HCPCS: 36415; 36600; 70450-TC; 70496-TC; 70498-TC; 71045-TC-FY; 80053; 80061; 81003; 82550; 82803; 83036; 83735; 84100; 84484; 85025; 85027; 85610; 85730; 87040; 87086; 87186; 93005; 93010; 93306-TC; 93880-TC; 97116-GP; 97162-GP; 99285-25; Q9967

== ENCOUNTER 2025-03-07 11:42 | Inpatient (IN) | payer OTHER ==
[2025-03-07 12:43] LABS: ABSOLUTE IMMATURE GRANULOCYTES 0.03 x10^3/uL (0.0-0.031); BASOPHILS # 0.02 x10^3/uL (0.01-0.08); EOSINOPHIL % 1.3 % (0.7-5.8); EOSINOPHILS # 0.13 x10^3/uL (0.04-0.36); MCHC 30.3 g/dl (32.2-35.5); MEAN CELL VOLUME 94.6 fl (79.4-94.8); MEAN PLT VOLUME 12.2 fl (9.4-12.3); MONOCYTE # 0.72 x10^3/uL (0.24-0.86); MONOCYTE % 7.1 % (4.7-12.5); RDW 13.7 % (12.5-17.0)
[2025-03-07 12:52] LABS: INR 1.11 (0.83-1.09); PROTHROMBIN TIME (PATIENT) 12.2 SEC (9.7-13.0)
[2025-03-07 12:54] LABS: ACTIVATED PTT 25.0 SECONDS (25.2-36.5)
[2025-03-07 13:01] LABS: GLUCOSE,RANDOM 83.0 mg/dL (74-106)
[2025-03-07 13:02] LABS: TOT PROT 7.3 g/dl (6.4-8.2)
[2025-03-07 13:03] LABS: CO2 23.0 mmol/L (21-32)
[2025-03-07 13:04] LABS: ALK PHOS 122.0 U/L (40-150)
[2025-03-07 13:07] LABS: SGOT/AST 59.0 U/L (5-34); SGPT/ALT 23.0 U/L (0-55)
[2025-03-07 13:08] LABS: CREATININE 0.62 mg/dL (0.55-1.3)
[2025-03-07] MEDS: SODIUM CHLORIDE 0.9% 500 ML INFUS.BAG IV ONE (14:41)
[2025-03-07 15:37] LABS: URINE APPEARANCE CLOUDY; URINE BILIRUBIN NEGATIVE (NEGATIVE); URINE COLOR YELLOW; URINE GLUCOSE (UA) NEGATIVE (NEGATIVE); URINE KETONE NEGATIVE (NEGATIVE); URINE LEUK ESTERASE 2+ (NEGATIVE); URINE NITRITE POSITIVE (NEGATIVE); URINE PROTEIN TRACE (NEGATIVE); URINE UROBILINOGEN 1.0 mg/dL (0.2-1.0)
[2025-03-07] MEDS ORDERED: CEFTRIAXONE 1 GM/50 ML BAG ONE (16:09)
[2025-03-07] MEDS ORDERED: DONEPEZIL HCL 5 MG TABLET (FP) ONE (21:00)
[2025-03-07] MEDS ORDERED: ATORVASTATIN CA 40 MG TABLET (FP) ONE (21:00)
[2025-03-07] MEDS: MEMANTINE HCL 10 MG TABLET (FP) PO SCH (21:27)
[2025-03-07] MEDS: DONEPEZIL HCL 10 MG TABLET (FP) PO SCH (21:27)
[2025-03-07] MEDS: ATORVASTATIN CA 40 MG TABLET (FP) PO SCH (21:27)
[2025-03-08 02:28] VITALS: BMI 30.9
[2025-03-08] MEDS: LEVOTHYROXINE NA 112 MCG TABLET (FP) PO SCH (06:11)
[2025-03-08 06:45] LABS: ABSOLUTE IMMATURE GRANULOCYTES 0.04 x10^3/uL (0.0-0.031); BASOPHILS # 0.02 x10^3/uL (0.01-0.08); EOSINOPHIL % 2.2 % (0.7-5.8); EOSINOPHILS # 0.18 x10^3/uL (0.04-0.36); MCHC 30.6 g/dl (32.2-35.5); MEAN CELL VOLUME 93.1 fl (79.4-94.8); MEAN PLT VOLUME 11.4 fl (9.4-12.3); MONOCYTE # 0.65 x10^3/uL (0.24-0.86); MONOCYTE % 7.9 % (4.7-12.5); RDW 13.4 % (12.5-17.0)
[2025-03-08 07:44] LABS: GLUCOSE,RANDOM 80.0 mg/dL (74-106); TOT PROT 5.6 g/dl (6.4-8.2)
[2025-03-08 07:46] LABS: CO2 26.0 mmol/L (21-32)
[2025-03-08 07:47] LABS: ALK PHOS 114.0 U/L (40-150)
[2025-03-08 07:50] LABS: CREATININE 0.73 mg/dL (0.55-1.3); SGOT/AST 30.0 U/L (5-34); SGPT/ALT 18.0 U/L (0-55)
[2025-03-08] MEDS: POTASSIUM CHLORIDE ORAL LIQUID 20 MEQ/15 ML PO ONE (08:39)
[2025-03-08] MEDS: ASPIRIN COATED 81 MG TABLET.EC PO SCH (09:55)
[2025-03-08] MEDS: ENOXAPARIN NA (PORCINE) 40 MG/0.4 ML DISP.SYRIN SQ SCH (09:55)
[2025-03-08] MEDS: CEFTRIAXONE 1 GM in DEXTROSE 5%-WATER - 50 ML IVPB SCH (10:02)
[2025-03-09 07:14] LABS: MCHC 30.3 g/dl (32.2-35.5); MEAN CELL VOLUME 92.7 fl (79.4-94.8); MEAN PLT VOLUME 12.2 fl (9.4-12.3); RDW 13.4 % (12.5-17.0)
[2025-03-09 07:55] LABS: GLUCOSE,RANDOM 82.0 mg/dL (74-106)
[2025-03-09 07:56] LABS: CO2 26.0 mmol/L (21-32)
[2025-03-09 08:00] LABS: CREATININE 0.74 mg/dL (0.55-1.3)
[2025-03-10 07:06] LABS: GLUCOSE,RANDOM 83.0 mg/dL (74-106)
[2025-03-10 07:08] LABS: CO2 26.0 mmol/L (21-32)
[2025-03-10 07:12] LABS: CREATININE 0.73 mg/dL (0.55-1.3)
[2025-03-10 11:27] VITALS: BP 150/73; PULSE 57; RESP 17; TEMP 97.5
== END 2025-03-10 15:10 | disposition home or self-care (01) | DRG 690 ==
LOC: JER 11:42 → JERBED 16:20 → J4W 03-08 03:06 → OBSVTOIN 03-08 12:47
PROVIDERS: ADMIT Student in an Organized Health Care Education/Training Program; ATTEND Student in an Organized Health Care Education/Training Program
DX: N39.0 Urinary tract infection, site not specified (principal); I48.92 Unspecified atrial flutter; R55 Syncope and collapse; E03.9 Hypothyroidism, unspecified; I25.10 Atherosclerotic heart disease of native coronary artery without angina pectoris; F02.80 Dementia in other diseases classified elsewhere, unspecified severity, without behavioral disturbance, psychotic disturbance, mood disturbance, and anxiety; G30.9 Alzheimer's disease, unspecified; E78.5 Hyperlipidemia, unspecified; R00.1 Bradycardia, unspecified
CPT/HCPCS: 36415; 70450-TC; 71045-TC-FY; 80048; 80053; 81003; 83735; 84100; 84439; 84443; 84484; 85025; 85027; 85610; 85730; 87086; 93005; 93010; 97116-GP; 97161-GP; 99285-25; G0378